=== PATIENT | female | born 1955 | race Caucasian/White ===

== ENCOUNTER 2024-10-09 16:01 | Emergency (ER) | payer OTHER, SELFPAY ==
[2024-10-09 16:03] VITALS: BP 174/115
[2024-10-09 16:36] LABS: Hematocrit 42.2 % (37.0-47.0); Hemoglobin 13.6 g/dL (12.0-16.0); Mean Corp Hgb Conc. 32.2 g/dL (33.0-37.0); Mean Corpuscular Volume 83.1 fL (81.0-99.0); Nucleated Red Blood Cells % 0 %; Platelet Count 319 10^3/uL (130-400); Red Cell Dist. Width 13.8 % (11.5-14.5)
[2024-10-09 16:51] LABS: ALT (SGPT) 17 U/L (0-35); AST (SGOT) 29 U/L (14-36); Albumin 4.5 g/dl (3.5-5.0); Alkaline Phosphatase 38 U/L (38-126); Blood Urea Nitrogen 21 mg/dl (7-17); Calcium 9.7 mg/dl (8.4-10.2); Carbon Dioxide 24 mmol/L (22-30); Chloride 107 mmol/L (98-107); Glucose 163 mg/dl (70-99); Potassium 4.3 mmol/L (3.5-5.1); Sodium 139 mmol/L (135-145); Total Protein 7.3 g/dl (6.3-8.2); eGFR > 60.00
[2024-10-09 18:16] VITALS: BMI 33.4
[2024-10-09 19:48] LABS: Urine Character Slightly Cloudy (Clear)
[2024-10-09 20:15] LABS: Urine Red Blood Cell 50-60 /HPF (0-2); Urine Squamous Cell >30 /LPF (Few); Urine White Cell 26-30 /HPF (0-5)
[2024-10-09] MEDS: ZOFRAN 4 MG IV (20:38)
[2024-10-09] MEDS: DILAUDID 0.5 MG IV (20:39)
[2024-10-09] MEDS: NSS 1000 IV (20:39)
[2024-10-09] MEDS: FLOMAX 0.4 MG PO (22:10)
[2024-10-09] MEDS: PERCOCET 5/325 1 TABLET PO (22:10)
[2024-10-09] MEDS: KEFLEX 500 MG PO (22:11)
--- NOTE | 2024-10-09 23:03 | ED.GENMED ---
History of Present Illness
General
Chief Complaint: Urinary Symptoms
Source: patient
Exam Limitations: none
Time Seen by Provider: 10/09/24 18:09
Nursing documentation reviewed up to this point in time: agreed with
History of Present Illness
History of Present Illness:
Patient to ED with complaint of right sided abdominal pain, radiating to her back. Reports diarrhea overnight, pain started this AM. Denies fever/chills. Brought to ED by spouse for eval.
Past History
Past History
ED Past Medical History: GERD, HTN, Hypercholesterolemia and NIDDM
ED Past Surgical History: None
Social History
Personal:
Living: with family
Employment: Employed
Review of Systems
Review of Systems
Allergies reviewed?: Yes
All Other Systems: ROS reviewed and negative except as documented in HPI and ROS
Constitutional: Reports no symptoms
EENT: Reports no symptoms
Respiratory: Reports no symptoms
Cardiac: Reports no symptoms
ABD/GI: Reports abdominal pain (Right abd. pain)
: Reports flank pain and urgency
Musculoskeletal: Reports no symptoms
Skin: Reports no symptoms
Neurological: Reports no symptoms
Psychiatric: Reports no symptoms
Phy Exam
General Physical Exam
General Presentation: moderate distress
General age: appears stated age
General Skin: warm and dry
General Habitus: normal
General Mental: alert
Gastrointestinal Exam
Gastrointestinal Exam: normal bowel sounds, soft, no organomegaly, no pulsatile mass, non distended and no cva tenderness
Palpation: left upper quadrant: No tenderness, left lower quadrant: No tenderness, right upper quadrant: Moderate tenderness and right lower quadrant: Moderate tenderness
Musculoskeletal Exam
Musculoskeletal Exam: full ROM and neuro vasc intact
Skin Exam
Skin Exam: normal color, warm/dry and no rash
Psychiatric Exam
Psychiatric Exam: normal mood/affect
Course
Orders/Labs/Results
Orders:
Orders
10/09/24 16:21
Complete Blood Count/With Diff Urgent
Comprehensive Metabolic Panel Urgent
10/09/24 19:28
0.9% Sodium Chloride 1000 ml [Nss] 1,000 ml IV BOLUS
HYDROmorphone [Dilaudid] 0.5 mg IV NOW STA
Ondansetron Injectable [Zofran] 4 mg IV NOW STA
10/09/24 19:29
CT Abd/pelvis W Iv Cont Urgent
Comment:
Reason For Exam: right abd. pain
10/09/24 19:40
Urine Culture Reflexed from UA [Urinalysis Reflex To Culture] Urgent
Date Specimen was Collected: 10/09/24
Time Specimen was Collected: 16:08
Urine Microscopic Reflex Cult Urgent
Urine Culture Urgent
RORY Source: U
Specimen Description:
Date Specimen was Collected: 10/09/24
Time Specimen was Collected: 16:08
10/09/24 21:48
Cephalexin Monohydrate [Keflex] 500 mg PO NOW STA
Oxycodone/Acetaminophen [Percocet 5/325] 1 tablet PO NOW STA
Tamsulosin [Flomax] 0.4 mg PO NOW STA
Abnormal Lab Results
10/09/24 10/09/24
16:21 19:40
WBC 16.7 H 10^3/uL
(4.8-10.8)
MCH 26.8 L pg
(27.0-31.0)
MCHC 32.2 L g/dL
(33.0-37.0)
MPV 12.0 H fL
(7.4-10.4)
Abs Immat Gran (auto) 0.1 H 10^3/uL
(0-0.05)
Absolute Neuts (auto) 13.9 H 10^3/uL
(1.4-6.5)
Absolute Monos (auto) 0.8 H 10^3/uL
(0.1-0.6)
Neutrophils % 83.7 H %
(42.2-75.2)
Lymphocytes % 9.6 L %
(20.5-51.1)
BUN 21 H mg/dl
(7-17)
Glucose 163 H mg/dl
(70-99)
Ur Occult Blood Reflex 4+ A
(Negative)
Leukocyte Esterase Rfl 2+ A
(Negative)
Urine RBC 50-60 A /HPF
(0-2)
Urine WBC (Reflex) 26-30 A /HPF
(0-5)
Urine Bacteria (Reflex) Few A
(Negative)
Urine Albumin (Reflex) 2+ A
(Neg - Trace)
10/09/24 16:21
10/09/24 16:21
Vital Signs
Initial and Last Documented VS:
Initial Vital Signs
Temp Pulse Resp BP Pulse Ox
98.1 F 86 16 174/115 97
10/09/24 16:03 10/09/24 16:03 10/09/24 16:03 10/09/24 16:03 10/09/24 16:03
Last Documented Vital Signs
Temp Pulse Resp BP Pulse Ox
98.1 F 86 16 174/115 97
10/09/24 16:03 10/09/24 16:03 10/09/24 16:03 10/09/24 16:03 10/09/24 16:03
*Radiology
Radiology exam reviewed: radiology read reviewed
*Pulse Oximetry
SaO2: 97
Oxygen Mode of Delivery: Room air
Patient hypoxic: no
*Critical Care Note
Total Time (30-74mins, 75-104mins- exclusive of procedures): Not Applicable
Update Note
Update Note:
Patient to ED with complaint of right sided abd pain since htis AM. CT tonight confirms 2.5mm right UVJ stone, mild hydronephrosis. No history of kidney stones. Given IVF and dilaudid in ED and is currently pain free. Will place on Tamsulosin,
prn pain medication and she will followu p with her urologist at [facility]. UA with 26-30 WBC, however squamous cells >30. WIll place on Keflex pending culture results. SHe agrees to increase fluid intake. Given instructions on s/s to return
to ED and she is agreeablel to plan.
ED Attending Note
-
Portions of this chart may have been created with voice recognition software.� Occasional wrong word or��sound alike� substitutions may have occurred due to the inherent limitations of voice recognition software.
Discharge Plan
Departure
Patient Disposition: Home (Routine Discharge)
Date of Disposition: 10/09/24
Time of Disposition: 21:49
Patient with high blood pressure during this ER visit?: No
Condition: Good
Covid-19: Not Applicable
Discharge Problem:
Kidney stone
Instructions: Ibuprofen, How to Strain Your Urine, Kidney stones in adults - ED discharge instructions
Prescriptions:
New
tamsulosin [Flomax] 0.4 mg capsule
0.4 mg PO DAILY Qty: 14 0RF
cephalexin 500 mg capsule
500 mg PO BID 7 Days Qty: 14 0RF
oxycodone-acetaminophen [Percocet] 5-325 mg tablet
1 tab PO Q4HPRN PRN (Reason: pain) Qty: 20 0RF
No Action
multivitamin [Drn-Czktfe-Qtcpv] 1 EACH tablet
1 ea PO DAILY
ranitidine HCl 300 MG tablet
300 mg PO DAILY
simvastatin 40 MG tablet
40 mg PO HS
metformin 1,000 MG tablet
1,000 mg PO BID
aspirin [Lissy Chewable Aspirin] 81 MG tablet,chewable
81 mg PO DAILY
valsartan 40 MG tablet
40 mg PO DAILY
cyclosporine [Restasis] 10 DROPS dropperette
1 drp BOTH EYES BID
exenatide [Byetta] 10 MCG/0.04 ML pen injector
10 mcg SQ BID
fenofibrate nanocrystallized 145 MG tablet
145 mg PO DAILY
omega-3 fatty acids-fish oil [Fish Oil] 1,000 MG capsule
2,000 mg PO DAILY
Niacin:
500 mg PO DAILY
Vitamin D
1 tab PO DAILY
Referrals:
Roberto Pickett MD [Family Provider, Family Practice]
Activity Restrictions/Additional Instructions:
Follow up with your urologist on Saturday. Return to the emergency department immediately for any changes in/worsening of your symptoms.
Interventions
Interventions:
*Risk Screen - Suicide Last Done: 10/09/24 16:03
*General Assessment Last Done: 10/09/24 16:03
*Neglect/Abuse Screening Last Done: 10/09/24 16:03
*ED- Fall Risk Assessment Last Done: 10/09/24 16:03
*ED COVID-19 Vaccine History Last Done: 10/09/24 16:03
*Nursing Disposition Last Done: 10/09/24 22:42
ED-Female Genitourinary Assessment Last Done: 10/09/24 18:16
Discharge Date and Time
Discharge Date/Time: 10/09/24 22:20
Print Language: CONGOLESE
== END 2024-10-09 22:20 | disposition home or self-care (01) ==
LOC: EMR 16:01
PROVIDERS: EMERGENCY PHYSICIAN Emergency Medicine; FAMILY PHYSICIAN Family Medicine
DX: N20.0 Calculus of kidney (principal); K21.9 Gastro-esophageal reflux disease without esophagitis; I10 Essential (primary) hypertension; E78.00 Pure hypercholesterolemia, unspecified; E11.9 Type 2 diabetes mellitus without complications
CPT/HCPCS: 99284; 96374; 96375; 96361; 74177; 80053; 81003; 81015; 85025; 87086; Q9967